=== PATIENT | male | born 1960 | race Caucasian/White ===

== ENCOUNTER 2020-03-31 11:40 | Outpatient (REF) | payer MEDICARE, MEDICAID, SELFPAY | END 2020-03-31 11:41 | disposition home or self-care (01) | LOC: HO.LAB 11:40 | PROVIDERS: PCP Internal Medicine; Visit Provider Internal Medicine | DX: Z20.828 Contact with and (suspected) exposure to other viral communicable diseases (principal) | CPT/HCPCS: C9803; U0003 ==

== ENCOUNTER 2020-07-08 13:55 | Outpatient (REF) | payer MEDICARE, MEDICAID, SELFPAY ==
[2020-07-08 16:35] LABS: Estimated Average Glucose 183 mg/dL
[2020-07-08 16:51] LABS: Alanine Aminotransferase 14 U/L (0-40); Albumin Level 4.4 g/dL (3.5-5.0); Alkaline Phosphatase 101 U/L (39-117); Anion Gap 13 (12-20); Aspartate Amino Transferase 27 U/L (5-37); Bilirubin Total 0.4 mg/dL (0.0-1.0); Blood Urea Nitrogen 13 mg/dL (9-16); Calcium 10.1 mg/dL (8.4-10.2); Carbon Dioxide 27 mmol/L (22-29); Chloride 104 mmol/L (96-108); Estimated Glomerular Filt Rate > 60; Glucose Random 88 mg/dL (60-115); Potassium 4.3 mmol/L (3.3-5.1); Sodium 140 mmol/L (135-145); Total Protein 7.4 g/dL (6.5-8.0)
[2020-07-08 17:03] LABS: Creatinine Urine 104.13 mg/dL; Microalbum/Creatinine Ratio Ur 10.5 ug/mg cr
[2020-07-09 11:16] LABS: LDL Cholesterol Direct 28 mg/dL (<100)
== END 2020-07-08 13:56 | disposition home or self-care (01) ==
LOC: HO.HMGCLDS 13:55
PROVIDERS: PCP Internal Medicine; Visit Provider Internal Medicine
DX: E78.9 Disorder of lipoprotein metabolism, unspecified (principal); I10 Essential (primary) hypertension; E13.9 Other specified diabetes mellitus without complications; G25.2 Other specified forms of tremor; E79.0 Hyperuricemia without signs of inflammatory arthritis and tophaceous disease
CPT/HCPCS: 36415; 80053; 82043; 83036; 83721